=== PATIENT | female | born 1965 | race Caucasian/White ===

== ENCOUNTER 2020-01-15 09:20 | Day surgery (SDC) | payer OTHER ==
[2020-01-11 14:55] VITALS: BMI 25.7
--- NOTE | 2020-01-15 09:56 | HP ---
History & Physical Update - History History: No Change - Physical Physical: No Change - Assessment Assessment: No Change - Plan Plan: No Change (Hysteroscopy, D&C)
--- NOTE | 2020-01-15 10:54 | OP ---
Operative Note - Note: Operative Date: 01/15/20 Pre-Operative Diagnosis: Postmenopausal bleeding Operation: Hysteroscopy, D&C Findings: Small AV uterus, small atrophic uterine cavity Post-Operative Diagnosis: Same as Pre-op Surgeon: José Miguel Bush Anesthesiologist/ITEM PROCESSOR: Sarah Villarreal Anesthesia: General Specimens Removed: Endometrial curettings Estimated Blood Loss (mls): 3 Blood Volume Replaced (mls): 0 Fluid Volume Replaced (mls): 600 Operative Report Dictated: Yes
[2020-01-15 12:26] VITALS: TEMP 98
[2020-01-15 14:33] VITALS: BP 98/66; PULSE 76
--- NOTE | 2020-01-15 19:55 | OP ---
DATE OF OPERATION: 01/15/2020 PREOPERATIVE DIAGNOSIS: Postmenopausal bleeding. POSTOPERATIVE DIAGNOSIS: Postmenopausal bleeding. PROCEDURE: Hysteroscopy and dilatation and curettage. SURGEON: Triston Monterroso MD ANESTHESIOLOGIST: KANDIS Ferrer ANESTHESIA: General. COMPLICATIONS: None. ESTIMATED BLOOD LOSS: 3 mL. INTRAVENOUS FLUIDS: 600 mL. PATHOLOGY: Endometrial curettings. FINDINGS: Examination under anesthesia showed a small, anteverted uterus with no pelvic or adnexal masses noted. Hysteroscopy revealed a small, atrophic cavity with a stenotic cervical os. No lesions were noted. DESCRIPTION OF PROCEDURE: The patient was met preoperatively. Risks, benefits, and alternatives of surgery were discussed in details. All questions were answered. The consent form was reviewed and discussed. The patient verbalized her understanding, and she requested to proceed with the surgery. The patient was then brought to the OR with the IV running. She was placed on the surgical table in the supine position. The general anesthesia was achieved without difficulty. The patient was then placed in a dorsal lithotomy position using adjustable Ruslan stirrups. She was examined under anesthesia with the findings as described above. The patient was prepped and draped in the usual sterile fashion. A timeout procedure was conducted as per standard protocol. A weighted speculum was then introduced inside the patient's vagina with good visualization of the cervix. The cervix was grasped with a single-tooth tenaculum. The cervical os was dilated gently to accommodate a size 17 Rowe dilator. A hysteroscope was introduced inside the uterine cavity with the findings as described above. The uterine cavity appeared to be atrophic, and there were some synechiae noted. The hysteroscope was then removed, and sharp curettage was performed. The tissue was sent to Pathology. Once this was completed, all of the instruments were removed from the patient. Sponge, lap, needle counts were correct. Good hemostasis was assured. The patient was returned to supine position. She was then transferred to recovery room in stable condition and awake. TRISTON MONTERROSO M.D. [id number]
--- NOTE | 2020-01-16 14:01 | PATH ---
Surgical Pathology Report Patient Name: CHARLES SEGURA [facility]. Rec. #: [id number] /Age/Gender: 1965 (Age: 54) / F Account: [id number] Location: [facility] SURGICAL Taken: 01/15/2020 Received: 01/15/2020 Reported: 01/16/2020 Physicians: José Miguel Bush M.D. Specimen(s) Received ENDOMETRIAL CURETTINGS Clinical History Postmenopausal bleeding Final Diagnosis ENDOMETRIAL CURETTINGS, DILATION AND CURETTAGE: ISOLATED ENDOMETRIAL GLANDS, SCANT STROMAL FRAGMENTS, SCANT BENIGN CERVICAL TISSUE ADMIXED BLOOD AND MUCUS. Electronically Signed Socorro Travis M.D. Gross Description Received in formalin labeled "endometrial curetting," is a 0.7 x 0.6 x 0.3 cm aggregate of red-brown soft tissue fragments. The formalin is filtered and the specimen is entirely submitted in one cassette. /01/15/2020 saudi/01/15/2020
== END 2020-01-15 14:05 | disposition home or self-care (01) ==
LOC: JASU-SURG 09:20
PROVIDERS: ATTEND Obstetrics & Gynecology
PROC: 0UDB7ZX Extraction of Endometrium, Via Natural or Artificial Opening, Diagnostic (ICD-10-PCS; principal; 2020-01-15 10:00)
PROC: 0UJD8ZZ Inspection of Uterus and Cervix, Via Natural or Artificial Opening Endoscopic (ICD-10-PCS; 2020-01-15 10:00)
DX: N95.0 Postmenopausal bleeding (principal)
CPT/HCPCS: 86850; 86870; 86900; 86901; 86902; 88305-TC; 94760